=== PATIENT | female | born 1990 | race Caucasian/White ===

== ENCOUNTER 2018-01-01 11:10 | Emergency (ER) | payer OTHER ==
[2018-01-01 11:16] VITALS: BMI 29.2
--- NOTE | 2018-01-01 11:21 | PDOC ---
Attending Attestation - HPI HPI: 01/01/18 12:14 27 year old female who is 28 weeks , , with no significant past medical history presents to the emergency department complaining of a headache since earlier this morning. As per healthcare account manager, the patient reports the headache is localized on the bilateral temples of her head without radiation. As per healthcare account manager, the patient reports feeling mildly nauseous which is chronic to her . As per healthcare account manager, the patient denies any numbness or tingling in her extremities, neck pain, neck stiffness, dysuria, vaginal discharge or bleeding. The patient denies fever, chills, diarrhea, vomiting, abdominal pain, dizziness, chest pain, or SOB. - Physicial Exam PE: 01/01/18 12:15 GENERAL: Awake, alert, and fully oriented, in no acute distress HEAD: No signs of trauma EYES: PERRLA, EOMI, sclera anicteric, conjunctiva clear NECK: Normal ROM, supple, no lymphadenopathy, JVD, or masses LUNGS: Breath sounds equal, clear to auscultation bilaterally. No wheezes, and no crackles HEART: Regular rate and rhythm, normal S1 and S2, no murmurs, rubs or gallops ABDOMEN: Soft, nontender, normoactive bowel sounds. No guarding, no rebound. BEDSIDE ULTRASOUND: (+) heart rate 133 BPM. EXTREMITIES: Normal range of motion, No clubbing or cyanosis. No cords, erythema , or tenderness NEUROLOGICAL: Cranial nerves II through XII grossly intact. Normal speech, SKIN: Warm, Dry, normal turgor, no rashes or lesions noted. <Julee Gonsales - Last Filed: 01/01/18 12:14> - Resident Resident Name: Mendoza Peter - ED Attending Attestation I have performed the following: I have examined & evaluated the patient, The case was reviewed & discussed with the resident, I agree w/resident's findings & plan, Exceptions are as noted - Medical Decision Making 01/01/18 11:20 I, Dr. Stacie Fishman, DO, attest that this document has been prepared under my direction and personally reviewed by me in its entirety. I further attest, that it accurately reflects all work, treatment, procedures and medical decision -making performed by me. 01/01/18 12:01 a/p: 27yo female at 28weeks with a hernandez that started today -bedside ultrasound 133 FHR -no meningeal signs -nontoxic in appearance -bp normal, however, will check pre-eclampsia labs, ua -plan to deliver at R -after ED eval and clearance, medication for headache, will need to go to L&D for monitoring 01/01/18 12:42 hernandez resolved feeling better 01/01/18 12:59 case discussed with L&D who will eval the patient pt stable for d/c from the ED discussed labs with the patient no elevated lft, no protein in the urine no dysuria nontoxic in appearnace no meningeal signs <Stacie Fishman - Last Filed: 01/01/18 13:00>
[2018-01-01] MEDS ORDERED: METOCLOPRAMIDE HCL INJECTION 10 MG/2 ML VIAL IVPUSH ONE (11:37)
[2018-01-01] MEDS ORDERED: SODIUM CHLORIDE 1,000 ML IV STA (11:37)
[2018-01-01] MEDS ORDERED: METOCLOPRAMIDE HCL INJECTION 10 MG/2 ML VIAL ONE (11:48)
--- NOTE | 2018-01-01 11:50 | PDOC ---
History of Present Illness - General Chief Complaint: Headache Stated Complaint: HEADACHE (32 WKS ) Time Seen by Provider: 01/01/18 11:19 History Source: Patient Exam Limitations: Language Barrier - History of Present Illness Initial Comments: 01/01/18 11:44 Patient is a 27F at 33wks and no significant medical history here today complaining of headache that started this morning. She describes the headache as insidious in onset located in both of her temples. She describes sensitivity to light, denies sensitivity to sound. Denies fevers, chills, neck pain, neck stiffness. Denies chest pain, shortness of breath, abdominal pain. She states that she's had chronic issues with nausea and some leg swelling during this . No other complications. Past History - Past Medical History Allergies/Adverse Reactions: Allergies Allergy/AdvReac Type Severity Reaction Status Date / Time No Known Allergies Allergy Verified 01/01/18 11:11 Home Medications: Ambulatory Orders NK [No Known Home Medication] 08/10/17 COPD: No - Reproductive History (#): 1 - Suicide/Smoking/Psychosocial Hx Smoking History: Never smoked Have you smoked in the past 12 months: No Information on smoking cessation initiated: No Hx Alcohol Use: No Drug/Substance Use Hx: No Substance Use Type: None Review of Systems - Review of Systems Comments:: 01/01/18 11:50 CONSTITUTIONAL: No fever or chills. No weakness. HEAD, EYES, EARS, NOSE AND THROAT: No change in vision. No sore throat. CARDIOVASCULAR: No chest pain or shortness of breath RESPIRATORY: No cough, wheezing, or hemoptysis. GASTROINTESTINAL: Positive for nausea. Negative for vomiting, diarrhea or constipation. GENITOURINARY: No dysuria, frequency, or change in urination. MUSCULOSKELETAL: No joint or muscle swelling or pain. No neck or back pain. SKIN: No rash NEUROLOGIC: Positive for headache. Negative for vertigo, loss of consciousness, or change in strength/sensation. HEMATOLOGIC/LYMPHATIC: No anemia, easy bleeding, or history of blood clots. ALLERGIC/IMMUNOLOGIC: No hives or skin allergy. *Physical Exam - Vital Signs Last Vital Signs Temp Pulse Resp BP Pulse Ox 97.8 F 78 18 120/71 100 01/01/18 11:13 01/01/18 11:13 01/01/18 11:13 01/01/18 11:13 01/01/18 11:13 - Physical Exam Comments: 01/01/18 11:51 GENERAL: Awake, alert, and fully oriented, covering eyes HEAD: No signs of trauma, normocephalic, atraumatic EYES: PERRLA, EOMI, sclera anicteric, conjunctiva clear ENT: Auricles normal inspection, hearing grossly normal, nares patent, oropharynx clear without exudates. Moist mucosa NECK: Normal ROM, supple, no lymphadenopathy, JVD, or masses LUNGS: No distress, speaks full sentences, clear to auscultation bilaterally HEART: Regular rate and rhythm, normal S1 and S2, no murmurs, rubs or gallops, peripheral pulses normal and equal bilaterally. ABDOMEN: Soft, nontender, normoactive bowel sounds. No guarding, no rebound. No masses EXTREMITIES: Normal inspection, Normal range of motion, no edema. No clubbing or cyanosis. NEUROLOGICAL: Cranial nerves II through XII grossly intact. Normal speech, no focal sensorimotor deficits SKIN: Warm, Dry, normal turgor, no rashes or lesions noted. ED Treatment Course - LABORATORY CBC & Chemistry Diagram: 01/01/18 12:00 01/01/18 12:00 Medical Decision Making - Medical Decision Making 01/01/18 11:52 Patient is 27F at 28 wks here today with headache. Vital signs stable, BP normal, no signs of pre-eclampsia. Believe patient most likely has simple headache, however will evaluate for pre-eclampsia with cbc, cmp, ua. Will treat with reglan and fluids. 01/01/18 12:58 Laboratory Tests 01/01/18 01/01/18 01/01/18 12:00 12:00 12:00 WBC 10.4 H Hgb 13.3 Hct 39.3 Plt Count 239 BUN 7 Creatinine 0.5 L Creat Clearance w eGFR > 60 Ur Leukocyte Esterase 1+ H Urine WBC (Auto) 2 Urine RBC (Auto) 1 CBC normal for 28wks . UA shows 1+ LE, 2 wbc, 1 rbc, no protein. Do not believe this is an UTI. Patient reports resolution of headache. Will discharge to L&D. *DC/Admit/Observation/Transfer Diagnosis at time of Disposition: Headache - Discharge Dispostion Disposition: HOME Condition at time of disposition: Good Admit: No - Referrals Referrals: Murtaza Forde MD [Primary Care Provider] - - Patient Instructions Printed Discharge Instructions: DI for Migraine Additional Instructions: Please go on to labor and delivery for further monitoring. Please return if you have any new, worsening or concerning symptoms. Please follow up with your primary care doctor this week. Print Language: CROATIAN - Post Discharge Activity
[2018-01-01 12:34] LABS: BASO % 0.4 % (0-2.0); EOS % 7.8 % (0-4.5); HEMATOCRIT 39.3 % (32.4-45.2); HEMOGLOBIN 13.3 GM/dL (10.7-15.3); LYMPH % 17.8 % (8-40); MCH 30.6 pg (25.7-33.7); MCHC 33.7 g/dl (32.0-36.0); MEAN CELL VOLUME 90.7 fl (80-96); MEAN PLT VOLUME 8.6 fl (7.5-11.1); MONO % 6.5 % (3.8-10.2); NEUT % 67.5 % (42.8-82.8); PLATELET COUNT 239 K/MM3 (134-434); RBC 4.34 M/mm3 (3.60-5.2); RDW 13.6 % (11.6-15.6); WHITE BLOOD COUNT 10.4 K/mm3 (4.0-10.0)
[2018-01-01 12:36] LABS: URINE APPEARANCE CLEAR; URINE BILIRUBIN NEGATIVE (<2.0 mg/dL); URINE BLOOD NEGATIVE (NEGATIVE); URINE COLOR YELLOW; URINE GLUCOSE (UA) NEGATIVE (NEGATIVE); URINE KETONE NEGATIVE (NEGATIVE); URINE NITRITE NEGATIVE (NEGATIVE); URINE PROTEIN NEGATIVE (NEGATIVE); URINE UROBILINOGEN NEGATIVE mg/dL (0.2-1.0)
[2018-01-01 12:37] LABS: URINE LEUK ESTERASE 1+ (NEGATIVE)
[2018-01-01 12:41] LABS: EPI CELLS RARE /HPF (FEW); URINE MUCUS RARE
[2018-01-01 12:48] LABS: ALBUMIN 2.9 g/dl (3.4-5.0); ANION GAP 8 (8-16); BLOOD UREA NITROGEN 7 mg/dL (7-18); CHLORIDE 108 mmol/L (98-107); CO2 22 mmol/L (21-32); CREATININE 0.5 mg/dL (0.55-1.02); GLUCOSE,RANDOM 79 mg/dL (74-106); POTASSIUM 3.9 mmol/L (3.5-5.1); SGOT/AST 15 U/L (15-37); SGPT/ALT 22 U/L (12-78); SODIUM 138 mmol/L (136-145); TOT PROT 7.2 g/dl (6.4-8.2)
[2018-01-01 12:54] LABS: ALK PHOS 94 U/L (45-117)
[2018-01-01 12:55] LABS: BILIRUBIN,TOTAL < 0.1 mg/dL (0.2-1.0)
[2018-01-01] MEDS ORDERED: ACETAMINOPHEN 325 MG TABLET (FP) PO ONE (13:00)
[2018-01-01] MEDS ORDERED: ACETAMINOPHEN 325 MG TABLET (FP) ONE (13:14)
[2018-01-01 13:57] VITALS: BP 105/48; PULSE 75; TEMP 98.5
== END 2018-01-01 13:53 | disposition home or self-care (01) ==
LOC: JER 11:10
PROC: 3E033GC Introduction of Other Therapeutic Substance into Peripheral Vein, Percutaneous Approach (ICD-10-PCS; principal; 2018-01-01)
DX: O99.89 Other specified diseases and conditions complicating pregnancy, childbirth and the puerperium (principal); R51 Headache; Z3A.28 28 weeks gestation of pregnancy
CPT/HCPCS: 36415; 80053; 81003; 81015; 85025; 96374; 99283-25; J7030

== ENCOUNTER 2018-03-16 15:04 | Inpatient (IN) | payer OTHER ==
[2018-03-16] MEDS: DEXTROSE 5%-LACTATED RINGERS 1,000 ML IV SCH (15:10)
[2018-03-16] MEDS ORDERED: AMPICILLIN - 2 GM in SODIUM CHLORIDE 100 ML IVPB ONE (15:10)
[2018-03-16 16:00] VITALS: BMI 36.3
[2018-03-16 17:13] LABS: BASO % 0.7 % (0-2.0); EOS % 0.3 % (0-4.5); HEMATOCRIT 42.1 % (32.4-45.2); HEMOGLOBIN 14.1 GM/dL (10.7-15.3); LYMPH % 18.4 % (8-40); MCH 30.1 pg (25.7-33.7); MCHC 33.4 g/dl (32.0-36.0); MEAN CELL VOLUME 90.1 fl (80-96); MEAN PLT VOLUME 10.1 fl (7.5-11.1); MONO % 6.6 % (3.8-10.2); PLATELET COUNT 190 K/MM3 (134-434); RBC 4.68 M/mm3 (3.60-5.2); RDW 14.3 % (11.6-15.6); WHITE BLOOD COUNT 11.2 K/mm3 (4.0-10.0)
[2018-03-16 17:31] LABS: INR 0.93 (0.82-1.09); PROTHROMBIN TIME (PATIENT) 10.5 SEC (9.7-13.0)
[2018-03-16 17:33] LABS: ACTIVATED PTT 28.2 SECONDS (26.9-34.4)
[2018-03-16] MEDS ORDERED: BUTORPHANOL TARTRATE 1 MG/ML VIAL ONE ×2 (18:38)
[2018-03-16] MEDS ORDERED: PROMETHAZINE HCL 25 MG/1 ML VIAL ONE (18:38)
[2018-03-16] MEDS ORDERED: AMPICILLIN SODIUM 1 GM VIAL ONE ×2 (18:42→23:15)
[2018-03-16] MEDS ORDERED: PROMETHAZINE HCL 25 MG/1 ML VIAL IVPUSH ONE (18:45)
[2018-03-16] MEDS ORDERED: BUTORPHANOL TARTRATE 1 MG/ML VIAL IVPUSH ONE (18:45)
[2018-03-16] MEDS: AMPICILLIN - 1 GM in SODIUM CHLORIDE 100 ML IVPB SCH ×2 (18:50→23:10)
[2018-03-16] MEDS ORDERED: FENTANYL/BUPIVACAINE/NS/PF - PCEA - 50 ML DISP.SYRIN EP ONE (21:29)
--- NOTE | 2018-03-16 21:31 | PN ---
Progress Note (short form) - Note Progress Note: 3 pm cx 4 cm 100 vx -2 mi, fhr cat 1, irregular contraction
--- NOTE | 2018-03-16 21:32 | PN ---
Progress Note (short form) - Note Progress Note: cx 6 cm 100 vx -1 mi, arpm clear , fhr cat 1, contraction q 3 min
[2018-03-16] MEDS: ELECTROLYTE-148 SOLN 1,000 ML IV SCH (21:35)
--- NOTE | 2018-03-16 21:37 | HP ---
Past Medical History - Primary Care Physician PCP:: Nikita Narvaez - Admission Chief Complaint: 39 5 weeks, labor History of Present Illness: 27 yo f g 1 p0 edc 03/20/18 , 39.5 weeks, labor , cx 4 cm 100 vx -2 mi , bulging. fhr cat 1, [facility] History Source: Patient Limitations to Obtaining History: No Limitations - Past Medical History ...: 1 ...Para: 0 ...LMP: 06/13/17 ... Weeks Gestation by Dates: 40.6 ...EDC by Dates: 03/10/18 ...EDC by Sono: 03/20/18 - Past Surgical History Hx Myomectomy: No Hx Transabdominal Cerclage: No - Smoking History Smoking history: Never smoked Have you smoked in the past 12 months: No - Alcohol/Substance Use Hx Alcohol Use: No Home Medications - Allergies Allergies/Adverse Reactions: Allergies Allergy/AdvReac Type Severity Reaction Status Date / Time No Known Allergies Allergy Verified 03/16/18 15:45 - Home Medications Home Medications: Ambulatory Orders Vit 108/Iron/Folic AC [ One Tablet] 1 tablet PO DAILY 03/02/18 Review of Systems - Review of Systems Constitutional: reports: No Symptoms Eyes: reports: No Symptoms HENT: reports: No Symptoms Neck: reports: No Symptoms Cardiovascular: reports: No Symptoms Respiratory: reports: No Symptoms Gastrointestinal: reports: No Symptoms Genitourinary: reports: No Symptoms Breasts: reports: No Symptoms Reported Musculoskeletal: reports: No Symptoms Integumentary: reports: No Symptoms Endocrine: reports: No Symptoms Hematology/Lymphatic: reports: No Symptoms Psychiatric: reports: No Symptoms Physical Exam - Maternity Vital Signs: Vital Signs Temperature 97.6 F 03/16/18 18:00 Pulse Rate 131 H 03/16/18 19:00 Respiratory Rate 20 03/16/18 19:00 Blood Pressure 131/75 03/16/18 19:00 O2 Sat by Pulse Oximetry (%) - Abdominal Exam/OB Fundal Height: 40 Number of Fetuses: Single Presentation: Vertex Contractions: Yes Regularity: Irregular Intensity: Mod/Strong Monitor Mode: External Category: I Accelerations: Uniform Decelerations: None - Vaginal Exam/OB Vaginal Bleediing: No Speculum Exam: No Dilatation (cm): 4 cm Effacement (%): 80 Amniotic Membrane Status: Bulging Presentation: Vertex/Position Station: -2 - Physical Exam Musculoskeletal: Yes: WNL Edema: LLE: Trace, RLE: Trace Deep Tendon Reflex Grade: Normal +2 Psychiatric: Yes: Alert - Labs Lab Results: CBC, BMP 03/16/18 16:40 Hemorrhage Risk Assessment - Risk Factors Medium Risk Factors: Yes: None High Risk Factors: Yes: None Risk Score: 1 Risk Level: Medium Risk Problem List - Problems (1) with 39 completed weeks gestation Code(s): Z3A.39 - 39 WEEKS GESTATION OF (2) with 39 completed weeks gestation Code(s): Z3A.39 - 39 WEEKS GESTATION OF (3) Labor established Code(s): HMU7184 - Assessment/Plan plan admit , fhm, anticipate vaginal delivery
[2018-03-16] MEDS ORDERED: BUPIVACAINE HCL/PF 0.25% (2.5MG/ML) 10 ML VIAL ONE (21:41)
[2018-03-16 21:56] LABS: ANION GAP 12 (8-16); BLOOD UREA NITROGEN 9 mg/dL (7-18); CALCIUM 8.9 mg/dL (8.5-10.1); CHLORIDE 107 mmol/L (98-107); CO2 20 mmol/L (21-32); CREATININE 0.5 mg/dL (0.55-1.02); GLUCOSE,RANDOM 94 mg/dL (74-106); POTASSIUM 3.9 mmol/L (3.5-5.1); SODIUM 139 mmol/L (136-145)
[2018-03-16] MEDS ORDERED: NALOXONE HCL 0.4 MG/ML VIAL IVPUSH PRN (22:04)
[2018-03-16] MEDS: FENTANYL/BUPIVACAINE/NS/PF - PCEA - 50 ML DISP.SYRIN EP SCH (22:05)
[2018-03-17] MEDS ORDERED: OXYTOCIN 20 UNITS in 0.9% NS 20 UNIT/1,000 ML INFUS.BAG IV ONE (00:59)
[2018-03-17] MEDS ORDERED: LIDOCAINE HCL 1% PRESERVATIVE FREE - 30ML VIAL ONE (00:59)
[2018-03-17] MEDS ORDERED: OXYTOCIN 30 UNITS in 0.9% NS 30 UNIT/500 ML INFUS.BAG IVPB ONE (01:48)
[2018-03-17] MEDS ORDERED: WITCH HAZEL 50% (TUCKS) 40 PAD/JAR PAD TP PRN (02:17)
[2018-03-17] MEDS ORDERED: BENZOCAINE 20% 57 GM BOTTLE TP PRN (02:17)
[2018-03-17] MEDS ORDERED: BISACODYL 10 MG SUPP.RECT RC PRN (02:17)
[2018-03-17] MEDS ORDERED: BENZOCAINE 28 GM HEMORRHOIDAL OINTMENT TP PRN (02:17)
[2018-03-17] MEDS ORDERED: METHYLERGONOVINE MALEATE 0.2 MG/1 ML AMP IM PRN (02:17)
[2018-03-17 02:42] LABS: ARTERIAL BLOOD GAS BASE EXCESS -6.1 meq/l (-2-2)
[2018-03-17 02:43] LABS: VENOUS PC02 47.3 mmHg (38-52); VENOUS PH 7.26 (7.32-7.42)
[2018-03-17 02:44] LABS: VENOUS PO2 24.9 mmHg (28-48)
[2018-03-17 02:49] LABS: ARTERIAL BLD GAS O2 SATURATION 30.5 % (90-98.9); ARTERIAL BLOOD GAS PCO2 61.6 mmHg (35-45); ARTERIAL BLOOD GAS pH 7.21 (7.35-7.45)
[2018-03-17] MEDS ORDERED: OXYTOCIN 20 UNITS in 0.9% NS 20 UNIT/1,000 ML INFUS.BAG IV SCH (03:15)
[2018-03-17] MEDS: FERROUS SO4 325 MG TABLET (FP) PO SCH ×2 (09:25→22:02)
[2018-03-17] MEDS: PRENATAL VITAMINS W/ FOLIC ACID TABLET (FP) PO SCH (09:25)
[2018-03-17] MEDS: ACETAMINOPHEN 325 MG TABLET (FP) PO PRN (20:11)
[2018-03-17] MEDS: IBUPROFEN 600 MG TABLET (FP) PO PRN (20:11)
[2018-03-18] MEDS: DEXTROSE 5%-LACTATED RINGERS 1,000 ML IV SCH (00:11)
[2018-03-18] MEDS: FENTANYL/BUPIVACAINE/NS/PF - PCEA - 50 ML DISP.SYRIN EP SCH (00:12)
[2018-03-18] MEDS: ELECTROLYTE-148 SOLN 1,000 ML IV SCH (00:12)
[2018-03-18] MEDS: AMPICILLIN - 1 GM in SODIUM CHLORIDE 100 ML IVPB SCH (00:15)
[2018-03-18 08:28] LABS: BASO % 0.2 % (0-2.0); EOS % 3.7 % (0-4.5); HEMATOCRIT 35.4 % (32.4-45.2); HEMOGLOBIN 11.9 GM/dL (10.7-15.3); LYMPH % 22.5 % (8-40); MCH 30.6 pg (25.7-33.7); MCHC 33.7 g/dl (32.0-36.0); MEAN CELL VOLUME 90.9 fl (80-96); MEAN PLT VOLUME 9.5 fl (7.5-11.1); MONO % 6.4 % (3.8-10.2); NEUT % 67.2 % (42.8-82.8); PLATELET COUNT 131 K/MM3 (134-434); RBC 3.89 M/mm3 (3.60-5.2); RDW 14.4 % (11.6-15.6); WHITE BLOOD COUNT 10.8 K/mm3 (4.0-10.0)
[2018-03-18] MEDS: FERROUS SO4 325 MG TABLET (FP) PO SCH ×2 (09:00→21:19)
[2018-03-18] MEDS: IBUPROFEN 600 MG TABLET (FP) PO PRN ×2 (09:00→20:03)
[2018-03-18] MEDS: PRENATAL VITAMINS W/ FOLIC ACID TABLET (FP) PO SCH (09:00)
[2018-03-18] MEDS: ACETAMINOPHEN 325 MG TABLET (FP) PO PRN ×2 (09:00→20:05)
[2018-03-18] MEDS ORDERED: DIPHTH,PERTUSS(ACELL),TET 0.5 ML DISP.SYRIN IM ONE (10:00)
--- NOTE | 2018-03-18 11:37 | PN ---
Post Progress Note - Subjective Subjective: Pt feeling well. No complaints. Breast and bottle feeding. Received tdap vaccine. Post Day: 1 Type of Delivery: Vital Signs: Vital Signs Temperature 98.1 F 03/18/18 08:01 Pulse Rate 71 03/18/18 08:01 Respiratory Rate 20 03/18/18 08:01 Blood Pressure 114/72 03/18/18 08:01 O2 Sat by Pulse Oximetry (%) 99 03/17/18 01:45 Breast Exam: Yes: Soft Uterus: Yes: Fundus Firm Abdomen/GI: Yes: Abdomen soft Lochia: Yes: Rubra Lochia, amount: Small Extremities: Yes: Calves non-tender Activity: Ambulating - Labs Labs: CBC WBC 10.8 K/mm3 (4.0-10.0) H 03/18/18 07:50 RBC 3.89 M/mm3 (3.60-5.2) 03/18/18 07:50 Hgb 11.9 GM/dL (10.7-15.3) D 03/18/18 07:50 Hct 35.4 % (32.4-45.2) D 03/18/18 07:50 MCV 90.9 fl (80-96) 03/18/18 07:50 MCH 30.6 pg (25.7-33.7) 03/18/18 07:50 MCHC 33.7 g/dl (32.0-36.0) 03/18/18 07:50 RDW 14.4 % (11.6-15.6) 03/18/18 07:50 Plt Count 131 K/MM3 (134-434) L D 03/18/18 07:50 MPV 9.5 fl (7.5-11.1) 03/18/18 07:50 Absolute Neuts (auto) 7.3 # 03/18/18 07:50 Neutrophils % 67.2 % (42.8-82.8) 03/18/18 07:50 Lymphocytes % 22.5 % (8-40) D 03/18/18 07:50 Monocytes % 6.4 % (3.8-10.2) 03/18/18 07:50 Eosinophils % 3.7 % (0-4.5) D 03/18/18 07:50 Basophils % 0.2 % (0-2.0) 03/18/18 07:50 Nucleated RBC % 0 % (0-0) 03/18/18 07:50 Problem List - Problems (1) care following vaginal delivery Assessment/Plan: Pt PPD#1 s/p , doing well continue routine pp care pain management as needed f/u pp visit 4-6 weeks plan for discharge tomorrow 03/19/18 Dr. Donahue Code(s): Z39.2 - ENCOUNTER FOR ROUTINE FOLLOW-UP
[2018-03-18] MEDS ORDERED: SENNOSIDES/DOCUSATE COMBO (SENNA PLUS) TABLET (UD) PO PRN (22:00)
[2018-03-19 07:47] VITALS: BP 109/66; PULSE 80; TEMP 98.9
[2018-03-19] MEDS: PRENATAL VITAMINS W/ FOLIC ACID TABLET (FP) PO SCH (09:21)
[2018-03-19] MEDS: ACETAMINOPHEN 325 MG TABLET (FP) PO PRN (09:21)
[2018-03-19] MEDS: FERROUS SO4 325 MG TABLET (FP) PO SCH (09:21)
[2018-03-19] MEDS: IBUPROFEN 600 MG TABLET (FP) PO PRN (09:22)
--- NOTE | 2018-03-23 22:54 | DS ---
Physical Exam-PUBLIC SPEAKER Vital Signs: Vital Signs Temperature 98.9 F 03/19/18 07:45 Pulse Rate 80 03/19/18 07:45 Respiratory Rate 20 03/19/18 07:45 Blood Pressure 109/66 03/19/18 07:45 O2 Sat by Pulse Oximetry (%) 99 03/17/18 01:45 Constitutional: Yes: Well Nourished, No Distress, Calm Eyes: Yes: WNL, Conjunctiva Clear, EOM Intact HENT: Yes: WNL, Atraumatic, Normocephalic Neck: Yes: WNL, Supple, Trachea Midline Cardiovascular: Yes: WNL, Regular Rate and Rhythm Respiratory: Yes: WNL, Regular, CTA Bilaterally Gastrointestinal: Yes: WNL ...Rectal Exam: Yes: WNL Renal/: Yes: WNL ....Post : Yes: Uterus firm, Uterus non-tender, Slight lochia rubra Breast(s): Yes: WNL Musculoskeletal: Yes: WNL Extremities: Yes: WNL Edema: No Integumentary: Yes: WNL Neurological: Yes: WNL, Alert, Oriented ...Motor Strength: WNL Psychiatric: Yes: WNL, Alert, Oriented Labs: CBC, BMP 03/18/18 07:50 03/16/18 16:40 Delivery - Delivery Vaginal Delivery: Spontaneous (no complication) Type of Anesthesia: Epidural Episiotomy/Laceration: Midline EBL (cc): 300 Delivery, Single - Stages of Labor Date 1st Stage Initiatied: 03/16/18 Time 1st Stage Initiated: 12:30 Date 2nd Stage Initiated: 03/17/18 Time 2nd Stage Initiated: 01:45 Date of Delivery: 03/17/18 Time of Delivery: 02:02 Time Placenta Delivered: 02:04 Placenta: Yes: Spontaneous - Condition of Legal Analyst/Duck Operator Present: No Gender: Female Weight: 6 lb 3 oz Position: Left, OA Total Hours ROM (Hrs/Mins): 4Hrs/38Mins - 1 Minute Total Score: 9 5 Minutes Total Score: 9 - [place] Feeding Plan Initial Plan: Elected not to breastfeed exclusively throughout hospitalization Discharge Summary Reason For Visit: LABOR ADMISSION Procedures: Principal: Hospital Course: no complication Condition: Good - Instructions Diet, Activity, Other Instructions: Physical activity Resume your normal everyday activity as tolerated no heavy lifting or exercise until seen by your surgeon. You may walk unlimited li of and climb stairs. You may resume driving the car when you feel safe and comfortable behind the wheel. No sexual activity as instructed. Wound care If you have a bandage, leave it on, and keep dry for 48-72 hours. After that time discard the outer bandage. If they are tapes on the skin under the out of bandage leave them in place. They will peel off in the next 7 to 10 days. Do Not Peel them off. You may shower the day after surgery. If there are tapes present on the skin, you may shower over them. Diet There are no dietary restrictions. Eat healthy, high-fiber foods. Drink 6 to 8 glasses of liquid each day. This will assist in keeping your bowels are regular. Pain management You may take Tylenol or acetaminophen or Ibuprofen (for example, Motrin, Advil etc.) from my pain prescription medication is ordered should be taken as prescribed for moderate to severe pain. Call MD for any of the following: Severe pain not relieved by medication Fever of 101 or higher Excessive bleeding or drainage on dressing Inability to urinate return to clinic in 4-6 weeks. call [facility] for appointment. [phone]. Disposition: HOME - Home Medications Comprehensive Discharge Medication List: Ambulatory Orders Vit 108/Iron/Folic AC [ One Tablet] 1 tablet PO DAILY 03/02/18
== END 2018-03-19 12:30 | disposition home or self-care (01) | DRG 560 ==
LOC: JDEL 15:04 → JLDR 15:05 → J3W 03-17 04:05
PROVIDERS: ADMIT Obstetrics & Gynecology; ATTEND Obstetrics & Gynecology
PROC: 10E0XZZ Delivery of Products of Conception, External Approach (ICD-10-PCS; principal; 2018-03-17)
DX: O80 Encounter for full-term uncomplicated delivery (principal); Z3A.39 39 weeks gestation of pregnancy; Z37.0 Single live birth
CPT/HCPCS: 36415; 36600; 59409; 80048; 82803; 85025; 85610; 85730; 86593; 86850; 86900; 86901; 90715